=== PATIENT | male | born 1955 | race Caucasian/White ===

== ENCOUNTER 2018-07-20 13:58 | Inpatient (IN) | payer OTHER ==
[~2018-07-20] VITALS: Ht 172.7 cm; Wt 71.9 kg
--- NOTE | 2018-07-20 14:36 | NUR ---
dr werner at bedside for mse.
--- NOTE | 2018-07-20 14:38 | NUR ---
REC'D A 62/M IN RM 1T WITH C/O LEFT 2ND TOE PAIN X 1.5 WEEKS, POSSIBLY GANGRENE. PT DENIES TRAUMA. HX OF DM. PT AAOX4, CLEAR SPEECH, RESP E/U, BLACK/DISCOLORATION NOTED TO LEFT 2ND TOE, WITH ERYTHEMA TO LEFT FOOT. PT IN NO ACUTE DISTRESS. AT BEDSIDE.
--- NOTE | 2018-07-20 14:52 | NUR ---
XRAY AT BEDSIDE.
[2018-07-20 15:27] LABS: BASOPHIL % 0.8 % (0-2); PLATELET COUNT 270 x10^3mcL (130-400); RED CELL DISTRIBUTION WIDTH 12.2 % (11.5-14.5)
[2018-07-20 15:31] LABS: CALCIUM 8.9 mg/dL (8.5-10.1); CARBON DIOXIDE 26.2 mmol/L (21-32); CREATININE SERUM 1.9 mg/dL (0.7-1.3); POTASSIUM SERUM 4.1 mmol/L (3.5-5.1)
--- NOTE | 2018-07-20 15:31 | NUR ---
PT INST TO PROVIDE URINE SAMPLE SOON POSSIBLE. URINAL PROVIDED
[2018-07-20 15:49] LABS: FREE T4 1.65 ng/dL (0.76-1.46)
[2018-07-20 15:50] LABS: T3 TOTAL 1.27 ng/mL
[2018-07-20 15:51] LABS: T4(THYROXINE) 16.7 ug/dL (4.7-13.3)
[2018-07-20 15:52] LABS: PHOSPHOROUS 3.6 mg/dL (2.5-4.9)
[2018-07-20 15:53] LABS: CHOLESTEROL/HDL RATIO 3.3
[2018-07-20 15:57] LABS: BILIRUBIN TOTAL 0.6 mg/dL (0.20-1.00); C REACTIVE PROTEIN 0.4 mg/dL (<=0.9); CK-MB 2.4 ng/mL (0-3.6)
[2018-07-20 15:59] LABS: TOTAL PROTEIN, SERUM 9.8 g/dL (6.4-8.2)
[2018-07-20 16:39] LABS: ERYTHROCYTE SED RATE 82 mm/hr (0-20)
--- NOTE | 2018-07-20 16:50 | NUR ---
REPORT GIVEN TO JONAS ANNE RESUMING CARE OF PT IN MED SURG FLOOR
--- NOTE | 2018-07-20 17:07 | NUR ---
PT TRANSFERRED TO MED SURG FLOOR VIA GURNEY BY MARSHALL DICKINSON. PT IN NO DISTRESS VSS JONAS RN RESUMING CARE OF PT
--- NOTE | 2018-07-20 17:20 | NUR ---
RECEIVED PT FROM ED VIA KACEY, CAME IN DUE TO LEFT FOOT PAIN X1 WEEK. AAOX4. STATED THAT HE HAD INGROWN NAIL AND DEVELOPED PAIN ON THE LEFT 2ND TOE. NO SOB NOTED. LUNG SOUNDS CTA. DENIES CHEST PAIN/PRESSURE. DENIES ABDOMINAL PAIN/NAUSEA/VOMITING. LAST BM TODAY, HAD DIARRHEAL EPISODES X2 DAYS. VOIDS. W/ BROWN DISCOLORATIONS ON BLE AND BLACK DISCOLORATION ON THE LEFT 2ND TOE. DENIES NUMBNESS/TINGLING SENSATION. IV SITE ON THE RIGHT HAND IS PATENT AND INTACT. RECEIVED PT FROM ED W/ VANCOMYCIN ONGOING. SIDE RAILS UXP2. CALL LIGHT ON REACH. ENDORSED TO PRIMARY NURSE JONAS FOR CONTINUITY OF CARE
[2018-07-20 17:27] VITALS: BP 181/102
[2018-07-20 17:37] VITALS: Ht 172.7 cm; Wt 71.9 kg
--- NOTE | 2018-07-20 18:11 | NUR ---
BP ELEVATED, 174/102, HR 60. DENIES SINGER. NO DIZZINESS. NO N/V. NO S/S OF ACUTE DISTRESS. DENIES CHEST PAIN. AA/OX4. FACE SYMMETRICAL. SPEECH CLEAR. PRN PO BP MEDICATION GIVEN PER ORDER. IV WNL TO RH, PATENT, FLUSHES WELL. SITE WNL, NO REDNESS, NO SWELLING, NO INFILTRATION. PT EATING DINNER. SIDE RAILS UP X2. BED IN LOW POSITION. CALL LIGHT WITHIN REACH. WILL ENDORSE TO ONCOMING SHIFT.
[2018-07-20 18:58] VITALS: BP 169/91
--- NOTE | 2018-07-20 20:00 | NUR ---
RECEIVED PT IN BED, RESTING QUIETLY. A/O X4, ABLE TO VERBALIZE NEEDS. RESP. EVEN AND UNLABORED. LUNGS SOUNDS CLEAR BILAT. ON ROOM AIR, NO ACUTE DISTRESS NOTED. AFEBRILE AND VITAL SIGNS STABLE. B/P READING SHOWS 139/79. AT THIS TIME. NO TELE, PT DENIES CP OR ANY DISCOMFORT. IVF, NS AT 100ML/HR, INTACT AND INFUSING VIA RH, SITE CLEAR. LT 2ND TOE DISCOLORED /GANGRENOUS. ABLE TO MOVE ALL EXTS. VOIDING FREELY. CALL LIGHT WITHIN REACH. WILL CONTINUE TO MONITOR.
[2018-07-20 20:56] VITALS: BP 130/81
--- NOTE | 2018-07-21 01:11 | NUR ---
EYES CLOSED, APPEARS ASLEEP, EASILY AROUSABLE. NO ACUTE DISTRESS NOTED.WILL CONTINUE TO MONITOR.
[2018-07-21 05:04] VITALS: BP 147/85
--- NOTE | 2018-07-21 06:16 | NUR ---
NPO EXCEPT MEDS MAINTAINED. IVF INTACT AND INFUSING WELL, SITE CLEAR. RESP. EVEN AND UNLABORED. NO ACUTE DISTRESS NOTED. AFEBRILE AND VITAL SIGNS STABLE. DUE MEDS GIVEN ORDERED. ELVIRA. WELL. NO COMPLAINTS NOTED AT THIS TIME. WILL CONTINUE TO MONITOR.
[2018-07-21 07:16] LABS: CALCIUM 8.5 mg/dL (8.5-10.1); CARBON DIOXIDE 22.6 mmol/L (21-32); CREATININE SERUM 1.8 mg/dL (0.7-1.3); POTASSIUM SERUM 4.6 mmol/L (3.5-5.1)
[2018-07-21 07:52] VITALS: BP 166/94
[2018-07-21 08:33] LABS: BASOPHIL % 0.7 % (0-2); PLATELET COUNT 231 x10^3mcL (130-400); RED CELL DISTRIBUTION WIDTH 12.4 % (11.5-14.5)
--- NOTE | 2018-07-21 15:20 | NUR ---
[facility] CALLED [facility] REQUESTING LATE LUNCH TRAY. PROVIDED PATIENT WITH SNACK AND WATER. NO OTHER NEEDS AT THIS TIME. TELEPHONE OPERATOR CHIEF, DR. JOHNSON AT BEDSIDE EVALUATING PATIENT. PATIENT TO HAVE SURGICAL PROCEDURE TO REMOVE 2ND LEFT DIGIT 07/24/18.
--- NOTE | 2018-07-21 16:58 | NUR ---
PATIENT SITTING UP IN BED, NO NEEDS AT THIS TIME.
[2018-07-21 17:49] VITALS: BP 117/75; BP 139/91
--- NOTE | 2018-07-21 19:43 | NUR ---
REPORT GIVEN TO OMID RAYMUNDO AND OMID LEON. PATIENT SITTING UP IN BED, NO DISTRESS NOTED. NS 100 ML/HR TO RIGHT HAND. BED LOW, CALL LIGHT WITHIN REACH. CARE ENDORSED.
--- NOTE | 2018-07-21 20:00 | NUR ---
RECIEVED PT RESTING IN BED. A/O X4. PT ABLE TO VERBALIZE NEEDS. RR EVEN AND UNLABORED. PT DENIES SOB. PT NOT ON TELE, DENIES CP OR ANY DIS COMFORT AT THIS TIME. IVF NS 100ML/HR AT RIGHT FA, SITE CLEAR. ABD SOFT AND NON-DISTENDED BS ACTIVE X4, NO N/V NOTED. LLE SECOND TOE BLACKENED. PULSES PALABLE BLE. PT ABLE TO MOVE ALL EXTREMITIES. DENIES PAIN OR DISCOMFORT. VOIDING FREELY. ASSISTED WITH HS CARE. CALL LIGHT WITHIN REACH. WILL CONTINUE TO MONITOR.
[2018-07-21 21:33] VITALS: BP 149/96
--- NOTE | 2018-07-22 01:08 | NUR ---
PT EYES CLOSED, APPEARS TO BE SLEEPING. EASILY AROUSABLE. NO ACUTE DISTRESS. IVF INFUSING WELL. CALL LIGHT WITHIN REACH. WILL CONTINUE TO MONITOR.
--- NOTE | 2018-07-22 05:10 | NUR ---
SLEPT WELL DURING THE NIGHT. NO SIGNIFICANT CHANGE NOTED IN PT,S CONDITION.RESP. EVEN AND UNLABORED. DENIES SOB. NO ACUTE DISTRESS NOTED. AFEBRILE AND VITAL SIGNS STABLE. DENIES ANY DISCOMFORT. IVF INTACT AND INFUSING WELL, SITE CLEAR. VOIDING FREELY. KEPT COMFORTABLE. ALL NEEDS ATTENDED TO. WILL CONTINUE TO MONITOR.
[2018-07-22 06:45] VITALS: BP 154/99
[2018-07-22 06:56] LABS: CALCIUM 8.5 mg/dL (8.5-10.1); CARBON DIOXIDE 23.4 mmol/L (21-32); CREATININE SERUM 1.8 mg/dL (0.7-1.3); POTASSIUM SERUM 4.1 mmol/L (3.5-5.1)
[2018-07-22 07:09] LABS: PLATELET COUNT 223 x10^3mcL (130-400); RED CELL DISTRIBUTION WIDTH 12.6 % (11.5-14.5)
--- NOTE | 2018-07-22 07:29 | NUR ---
RECEIVED PT FROM SHIFT NURSE SITTING ON EDGE OF BED A/OX4. NO ACUTE DISTRESS NOTED. IV INTACT AND PATENT. BED IN LOW POSITION. CALL LIGHT WITHIN REACH. WILL CONTINUE TO MONITOR.
[2018-07-22 09:45] VITALS: BP 158/97
--- NOTE | 2018-07-22 10:05 | NUR ---
PT RESTING IN BED AND NO ACUTE DISTRESS NOTED. DENIES ANY PAIN OR DISCOMFORT. IV INTACT AND INFUSING WELL. CALL LIGHT WITHIN REACH. WILL CONTINUE TO MONITOR.
[2018-07-22 13:20] LABS: AMPHETAMINE QUAL UR NONE DETECTED (See below)
--- NOTE | 2018-07-22 13:48 | NUR ---
PT BP 178/107. MADE MENTAL HEALTH CONSULTANT [place] AWARE. GAVE METOPROLOL ORDERED. WILL CONTINUE TO MONITOR.
[2018-07-22 15:55] VITALS: BP 167/101
--- NOTE | 2018-07-22 16:16 | NUR ---
PT BP STILL ELEVATED 167/101. MADE GLAZE GRINDER [place] AWARE. GAVE HYDRALAZINE ORDERED. WILL CONTINUE TO MONITOR.
[2018-07-22 18:00] VITALS: BP 175/92
--- NOTE | 2018-07-22 18:15 | NUR ---
PT BP 175/92. MADE CAFETERIA CASHIER [place] AWARE. PER [place] WILLS TO GIVE HYDRALAZINE PRN. WILL CONTINUE TO MONITOR.
--- NOTE | 2018-07-22 18:52 | NUR ---
PT SITTING ON EDGE OF BED EATING DINNER. NO ACUTE DISTRESS NOTED. FAMILY MEMBER AT BEDSIDE. IV INTACT AND PATENT. BED IN LOW POSITION. CALL LIGHT WITHIN REACH. WILL BE ENDORSED.
--- NOTE | 2018-07-22 19:49 | NUR ---
PT. AWAKE, ALERT, SITTING UP AT BEDSIDE EATING HIS DINNER. FAMILY AT BEDSIDE. BREATH SOUNDS CLEAR THROUGHOUT LUNG REGAN, RESP. EVEN, UNLABORED. NO SOB. PT. ON RA. DENIES CHESTPAIN OR DISCOMFORT. PEDAL PULSES MODERATE TO BLE. LLE SECOND TOE DICOLORED, BLACK IN APPEARANCE. DENIES ANY PAIN. NO DRAINAGE NOTED. PT. STILL ABLE TO FEEL SENSATION ON SOLE OF BLE. ABD. SOFT AND ROUND, BOWEL SOUNDS ACTIVE. IV SITE INTACT. CALL LIGHT WITHIN REACH.
[2018-07-22 21:30] VITALS: BP 169/103
--- NOTE | 2018-07-23 00:37 | NUR ---
PT. APPEARS TO BE SLEEPING AT THIS TIME. EYES CLOSED AND SNORING. NO C/O PAIN THUS FAR. NO DRAINAGE FROM LLE 2ND TOE. WILL CONTINUE TO MONITOR. CALL LIGHT WITHIN REACH.
[2018-07-23 03:39] VITALS: BP 143/88
--- NOTE | 2018-07-23 06:28 | NUR ---
PT. SLEPT WELL THROUGHOUT NIGHT. NO C/O PAIN. DRSG. TO LLE 2ND TOE INTACT. IVF INFUSING WELL, SITE INTACT. CALL LIGHT WTIHIN REACH. WILL ENDORSE PT. CARE TO INCOMING NURSE.
--- NOTE | 2018-07-23 07:10 | NUR ---
RECEIVED PT FROM SHIFT NURSE A/OX4 SITTING UP IN BED. NO ACUTE DISTRESS NOTED. IV INTACT AND PATENT. BED IN LOW POSITION. CALL LIGHT WITHIN REACH. WILL CONTINUE TO MONITOR.
[2018-07-23 07:41] LABS: CALCIUM 8.7 mg/dL (8.5-10.1); CARBON DIOXIDE 22.7 mmol/L (21-32); CREATININE SERUM 1.7 mg/dL (0.7-1.3); POTASSIUM SERUM 4.1 mmol/L (3.5-5.1)
[2018-07-23 08:18] LABS: BASOPHIL % 0.8 % (0-2); PLATELET COUNT 245 x10^3mcL (130-400); RED CELL DISTRIBUTION WIDTH 12.6 % (11.5-14.5)
[2018-07-23 08:58] VITALS: BP 161/105
--- NOTE | 2018-07-23 08:58 | NUR ---
PT BP 161/105. GAVE APRESOLINE ORDERED. WILL CONTINUE TO MONITOR.
--- NOTE | 2018-07-23 10:17 | NUR ---
PT SITTING IN BED TALKING WITH FAMILY MEMBER ON PHONE. NO ACUTE DISTRESS NOTED. BED IN LOW POSITION. CALL LIGHT WITHIN REACH. WILL CONTINUE TO MONITOR.
[2018-07-23 11:45] VITALS: BP 156/101
--- NOTE | 2018-07-23 12:00 | NUR ---
PT BP 156/101 AND MADE PRODUCTION MACHINE TENDER [place] AWARE. WILL GIVE ZESTRIL ORDERED. WILL CONTINUE TO MONITOR.
--- NOTE | 2018-07-23 15:03 | NUR ---
INFORMED [facility] 12.1.
--- NOTE | 2018-07-23 15:30 | NUR ---
PER PHARMACIST OK TO GIVE SCHEDULED VANCOMYCIN.
--- NOTE | 2018-07-23 19:43 | NUR ---
PT. AWAKE, ALERT, SITTING UP IN BED. FAMILY AT BEDSIDE. ORIENTED X4. DENIES HEADACHE OR DIZZINESS. BEATH SOUNDS CLEAR THROUGHOUT LUNG REGAN, RESP. EVEN, UNLABORED. NO SOB NOTED. ON RA. DENIES CHESTPAIN OR DISCOMFORT. PEDAL PULSES MODERATE TO BLE. LLE SECOND TOE DISCOLORED, BLACK. NO DRAINAGE NOTED. DRSG CDI. ABD. SOFT AND ROUND, BOWEL SOUNDS ACTIVE. IVF INFUSING WELL, SITE INTACT. CALL LIGHT WITHIN REACH.
[2018-07-23 20:49] VITALS: BP 176/105
--- NOTE | 2018-07-23 21:48 | NUR ---
PT. CARE BEING ENDORSED OVER TO HOLA ANNE. VASOTEC IVP WAS ORDERED. PT. IS BEING PLACED ON HEART MONITOR PER PROTOCOL.
--- NOTE | 2018-07-23 22:19 | NUR ---
PT.PLACED ON TELE NUMBER 2, NSR. NO C/O CHESTPAIN. BLOOD PRESSURE RECHECKED, 181/110. PT. CARE ENDORSED TO HOLA WHO WILL ADMINISTER PRN DOSE OF VASOTEC IVP. DR. PARRISH AWARE THAT PT.'S BEING PLACED ON TELE MONITOR. PT. MADE AWARE OF CHANGE OF NURSE AND REASON WHY. PT. VERBALIZED UNDERSTANDING OF SWITCH.
--- NOTE | 2018-07-23 22:45 | NUR ---
ZX=722/110, ENALALAPRILAT 0.625MG IVP PRN MEDICATION. DENIES ANY HEADACHE/CHESTPAIN AT THIS TIME. WILL CONTINUE TO MONITOR.
[2018-07-24] VITALS (9 sets, daily range): BP systolic 122–185; BP diastolic 82–109
--- NOTE | 2018-07-24 07:15 | NUR ---
SEEN IN BED AAOX4. NO SOB OR RESP DISTRESS NOTED. DENIES PAIN. KEPT NPO FOR PROCEDURE TODAY IN AFTERNOON. PATIENT MADE AWARE PLAN OF CARE. IVF NS TO RFA INFUSING WELL. NOTED LT 2ND TOE BLACK IN COLOR, DRY, COVERRED WITH DRY GAUZE. SCD TO BLE INPLACED. CALL LIGHT PLACED WITHIN EASY REACH. SIDERAILS UP X2.
[2018-07-24 08:43] LABS: BASOPHIL % 1.2 % (0-2); PLATELET COUNT 240 x10^3mcL (130-400); RED CELL DISTRIBUTION WIDTH 12.7 % (11.5-14.5)
[2018-07-24 08:48] LABS: CALCIUM 8.4 mg/dL (8.5-10.1); CARBON DIOXIDE 22.5 mmol/L (21-32); CREATININE SERUM 1.7 mg/dL (0.7-1.3); MAGNESIUM 1.9 mg/dL (1.8-2.4); POTASSIUM SERUM 4.2 mmol/L (3.5-5.1)
--- NOTE | 2018-07-24 09:06 | NUR ---
AM SCHEDULED MEDS GIVEN. IVPB ZOSYN INFUSING WELL TO RT HAND IV SITE. SALO WIPE PROVIDED.
--- NOTE | 2018-07-24 13:50 | NUR ---
AT 12:45PM BROUGHT VIA BED TO OR. NO ANY DISTRESS NOTED.
--- NOTE | 2018-07-24 14:55 | NUR ---
RECEIVED BACK FROM OR S/P PARTIAL LEFT SECOND RAY AMPUTATION. AAOX4. NOTED DRSG TO LEFT FOOT DRY AND INTACT, ABLE TO WIGGLE TOES, DENIES PAIN AT THIS TIME. KEPT LLE ELEVATED ON PILLOW. POST OP SHOES AT BEDSIDE. V/S CHECKED STABLE, O2SAT 95% ON ROOM AIR, BP 160/98, RR 18, HR 78, AFEBRILE. IVF NS RECONNECTED AND INFUSING AT 100ML/HR. CALL LIGHT PLACED WITHIN EASY REACH. SIDERAILS UP X2. PATIENT'S BROTHER AT BEDSIDE.
--- NOTE | 2018-07-24 17:30 | NUR ---
PATIENT HAD A SHORT V-TACH, SEEN PATIENT SITTING UP IN BED TALKING TO HIS BROTHER, DENIES CHEST PAIN, BP 166/103, HR 79, RR 18, O2SAT 94% AMBAR NOTIFIED, STAT EGK AND NEW ORDER FOR METOPROLOL 25MG PO X1 WILL BE DONE.
--- NOTE | 2018-07-24 18:59 | NUR ---
RECHECKED BP AFTER METOPROLOL 25MG PO GIVEN, BP 165/96, HR 77. DENIES CHEST PAIN OR CHEST PRESSURE. WILL ENDROSE TO INCOMING SHIFT.
--- NOTE | 2018-07-24 20:28 | NUR ---
PT CURRENTLY RESTING IN BED, NO ACUTE DISTRESS. A/O X4. TELE #2 SHOWING SINUS RHYTHM, DENIES CHEST PAIN. PULSES PALPABLE IN ALL EXTREMITIES, NO EDEMA NOTED. LUNG SOUNDS CTA BILATERALLY, DENIES SOB. BOWEL SOUNDS ACTIVE, LAST BM 07/24/18. VOIDING WELL. AMBULATORY. S/P LEFT 2ND TOE AMPUTATION, DRESSING CDI. DENIES PAIN AT THIS TIME. IV PATENT AND INTACT. BED IN LOWEST POSITION, SIDE RAILS UP X2, CALL LIGHT WITHIN REACH. WILL CONTINUE TO MONITOR.
--- NOTE | 2018-07-25 02:13 | NUR ---
PT CURRENTLY RESTING IN BED, NO ACUTE DISTRESS. WILL CONTINUE TO MONITOR.
[2018-07-25 05:21] VITALS: BP 154/82
[2018-07-25 06:20] LABS: BASOPHIL % 0.4 % (0-2); PLATELET COUNT 243 x10^3mcL (130-400); RED CELL DISTRIBUTION WIDTH 12.8 % (11.5-14.5)
--- NOTE | 2018-07-25 06:33 | NUR ---
PT SLEPT PERIODICALLY THROUGHOUT NIGHT, NO ACUTE DISTRESS. ALL NEEDS MET AND ATTENDED TO. NO SIGNIFICANT CHANGES. IV PATENT AND INTACT. BED IN LOWEST POSITION, SIDE RAILS UP X2, CALL LIGHT WITHIN REACH. WILL ENDORSE CARE TO ONCOMING NURSE.
[2018-07-25 06:40] LABS: CALCIUM 8.6 mg/dL (8.5-10.1); CARBON DIOXIDE 25.7 mmol/L (21-32); CREATININE SERUM 1.9 mg/dL (0.7-1.3); POTASSIUM SERUM 4.9 mmol/L (3.5-5.1)
--- NOTE | 2018-07-25 07:05 | NUR ---
SEEN IN BED AAOX4. NO SOB OR RESP DISTRESS NOTED ON ROOM AIR. TELE#2 NSR. DRSG TO LT FOOT DRY/INTACT, CONTINUED ELEVATED ON PILLOW, STATED HAD NO PAIN, DENIES NUMBNESS TO LLE, ABLE TO MOVE AND WIGGLE LEFT TOES, SKIN WARM, CAP REFIL<3SEC. POST-OP SHOES AT BEDSIDE, PATIENT MADE TO WEAR THEM TO AMBULATE. IVF NS TO RT HAND INFUSING WELL. PLAN OF CARE INFORMED, CALL LIGHT PLACED WITHIN EASY REACH. SIDERAILS UP X2.
[2018-07-25 08:10] VITALS: BP 168/99
--- NOTE | 2018-07-25 10:06 | NUR ---
BP 168/99, HR 68. DENIES CHEST PAIN. ASCHEDULED AM MEDS LISINOPRIL 10MG AND HYDRALAZINE 10MG PO GIVEN. WILL BE MONITORED.
--- NOTE | 2018-07-25 12:00 | NUR ---
BP 139/100, HR 67. DENIES HEADACHE OR DIZZINESS.
[2018-07-25 12:21] VITALS: BP 139/100
--- NOTE | 2018-07-25 16:00 | NUR ---
BP 188/102, HR 63, HYDRALAZINE 10MG PO GIVEN.
[2018-07-25 16:11] VITALS: BP 188/102
--- NOTE | 2018-07-25 18:30 | NUR ---
REPEATED BP 178/95, HR 67. DENIES HEADACHE OR DIZZINESS. DENIES PAIN.
[2018-07-25 18:32] VITALS: BP 178/95
--- NOTE | 2018-07-25 18:46 | NUR ---
DRSG REMOVED AND NEW DRSG APPLIED BY DOCTOR DAY(PODIATRY) AT BEDSIDE. DENIES PAIN. KEPT LLE ELEVATED ON PILLOW.
--- NOTE | 2018-07-25 18:51 | NUR ---
ABLE TO AMBULATE TO BATHROOM WITH FULL HEEL WEIGH BEARING IN POST OP SHOE ON LEFT FOOT, REFUSED PAIN MEDS OFFERRED. PT EVAL DONE. ALL SCHEDULED MEDS GIVEN. IV SITE TO RFA INTACT AND PATENT.
--- NOTE | 2018-07-25 19:45 | NUR ---
PT CURRENTLY RESTING IN BED, NO ACUTE DISTRESS. A/O X4. TELE #2 SHOWING SINUS RHYTHM, DENIES CHEST PAIN. PULSES PALPABLE IN ALL EXTREMITIES, NO EDEMA NOTED. LUNG SOUNDS CTA BILATERALLY, DENIES SOB. BOWEL SOUNDS ACTIVE, LAST BM 07/24/18. VOIDING WELL. AMBULATORY. S/P LEFT 2ND TOE AMPUTATION, DRESSING CDI. IV PATENT AND INTACT. BED IN LOWEST POSITION, SIDE RAILS UP X2, CALL LIGHT WITHIN REACH. WILL CONTINUE TO MONITOR.
[2018-07-25 21:13] VITALS: BP 156/87
--- NOTE | 2018-07-26 01:20 | NUR ---
PT CURRENTLY RESTING IN BED, NO ACUTE DISTRESS. WILL CONTINUE TO MONITOR.
[2018-07-26 06:07] VITALS: BP 144/98
[2018-07-26 06:37] LABS: BASOPHIL % 0.9 % (0-2); PLATELET COUNT 255 x10^3mcL (130-400); RED CELL DISTRIBUTION WIDTH 12.5 % (11.5-14.5)
[2018-07-26 06:42] LABS: CALCIUM 9.1 mg/dL (8.5-10.1); CARBON DIOXIDE 26.4 mmol/L (21-32); CREATININE SERUM 1.9 mg/dL (0.7-1.3); POTASSIUM SERUM 4.8 mmol/L (3.5-5.1)
--- NOTE | 2018-07-26 07:40 | NUR ---
RC'D PT RESTING IN BED WITH NO APPARENT SIGNS OF DISTRESS. A/A/AO/X4, SPEECH CLEAR AND APPROPRIATE. DENIES SINGER/DIZZINESS. ON TELE, DENIES CHEST PAIN/PRESSURE. PALP PULSES. RESPIRATIONS EQUAL AND UNLABORED. LUNGS CTA. ON RA, DENIES SOB. ABDOMEN SOFT AND NONTENDER. ACTIVE BS. DENIES N/V. VOIDS FREELY. GENERALIZED WEAKNESS TO LLE. LLE DRESSING IN PLACE, CDI. DENIES PAIN AT THIS TIME. IV PATENT AND INTACT. BED IN LOW POSITION. CALL LIGHT IN REACH. WILL CONTINUE TO MONITOPTR
[2018-07-26 08:48] VITALS: BP 186/104
--- NOTE | 2018-07-26 08:50 | NUR ---
AM MEDICATIONS GIVEN. PT TOLERATED WELL. RESPIRATIONS EQUAL AND UNLABORED. ON RA, DENIES SOB. PT DENIES EXCESSIVE PAIN AT THIS TIME. BED IN LOW POSITION. CALL LIGHT IN REACH. WILL CONTINUE TO MONITOR
[2018-07-26] MEDS ORDERED: NOR5 PO (10:19)
[2018-07-26] MEDS ORDERED: ZESTRIL20 MG PO (10:20)
[2018-07-26] MEDS ORDERED: IBUPROFEN400 MG PO (10:20)
--- NOTE | 2018-07-26 11:14 | NUR ---
PT RESTING IN BED WITH NO APPARENT SIGNS OF DISTRESS. RESPIRATIONS EQUAL AND UNLABORED. ON RA, DENIES SOB. PT DENIES EXCESSIVE PAIN AT THIS TINM. BE DIN LOW POSITION. CALL LIGHT IN REACH. [facility]
--- NOTE | 2018-07-26 12:14 | NUR ---
BP 168/97 HR 62, MEDICATED WITH HYDRALAZINE PO PER EMAR. WILL CONT TO MONITOR
[2018-07-26 13:49] VITALS: BP 169/103
--- NOTE | 2018-07-26 14:49 | NUR ---
BP 192/104 (165), HR 62. PT ASMPTOMATIC AT THIS TIME. NOTIFIED PAID SEARCH MANAGER [place], AWAITING NEW ORDERS AT THIS TIME.
--- NOTE | 2018-07-26 15:28 | NUR ---
HYDRALAZINE IVP GIVEN AT THIS TIME. PT BP RECHECKED, 142/85 (111), HR 65. PT ASYMPOTAMATIC AT THIS TIME. BED IN LOW POSITION. CALL LIGHT IN REACH WILL CONTINUE TO MONITOR
[2018-07-26] MEDS ORDERED: COZ25 PO (16:39)
[2018-07-26] MEDS ORDERED: NOR10 PO (16:39)
[2018-07-26 16:56] VITALS: BP 129/77
--- NOTE | 2018-07-26 17:28 | NUR ---
PT PROVIDED WITH DC HOME INSTRUCTIONS. PT GIVEN MEDICATION EDUCATION. PT INFORMED TO TAKE MEDICATIONS ORDERED BY MD. PT INFORMED OF FOLLOW UP APPT WITH PCP. PT INFORMED TO KEEP LLE DRESSING CLEAN AND DRY. PT INFORMED TO FOLLOW UP [facility] SCHEDULED. PT INFORMED THAT IF WORSENING SIGNS AND SYMPTOMS WERE TO OCCUR TO RETURN TO HOSPITAL OR REPORT TO PCP. PT VERBALIZED UNDERSTANDING OF INSTRUCTIONS. TELE AND IV DC'D, CATHETER INTACT. NO REDNESS OR INFLAMMATION NOTED. PT WITH ALL BELONGINGS PRESENT AND NO APPARENT SIGNS OF DISTRESS AWAITING FOR RIDE TO BE TAKEN DOWN TO LOBBY WITH AUTOMOBILE DAMAGE FIELD APPRAISER PRESENT
--- NOTE | 2018-07-26 18:39 | NUR ---
PT TAKEN DOWN TO LOBBY WITH NO APPARENT SIGNS OF DISTRESS WITH ALL PERSONAL BELONGINGS IN HAND WITH FAMILY AND LIVESTOCK EXHIBITOR PTRESENT
== END 2018-07-26 18:40 | disposition home or self-care (01) | DRG 305 ==
LOC: ED 13:58 → DU 14:54 → MU 14:54 → DU 07-24 04:21
PROVIDERS: General Practice; Podiatrist Foot & Ankle Surgery; Specialist; ADMIT Internal Medicine
PROC: 0Y6N0ZB Detachment at Left Foot, Partial 2nd Ray, Open Approach (ICD-10-PCS; 2018-07-24)
PROC: 0Y6S0Z0 Detachment at Left 2nd Toe, Complete, Open Approach (ICD-10-PCS; principal; 2018-07-24 13:30)
DX: E11.52 Type 2 diabetes mellitus with diabetic peripheral angiopathy with gangrene (principal); N17.0 Acute kidney failure with tubular necrosis; I96 Gangrene, not elsewhere classified; E87.8 Other disorders of electrolyte and fluid balance, not elsewhere classified; E11.40 Type 2 diabetes mellitus with diabetic neuropathy, unspecified; E44.0 Moderate protein-calorie malnutrition; L03.116 Cellulitis of left lower limb; E11.65 Type 2 diabetes mellitus with hyperglycemia; I10 Essential (primary) hypertension; M20.12 Hallux valgus (acquired), left foot; M20.11 Hallux valgus (acquired), right foot; E87.1 Hypo-osmolality and hyponatremia; I16.0 Hypertensive urgency; R74.0 Nonspecific elevation of levels of transaminase and lactic acid dehydrogenase [LDH]; Z68.23 Body mass index [BMI] 23.0-23.9, adult; Z79.84 Long term (current) use of oral hypoglycemic drugs
CPT/HCPCS: 82962; 84439; 94150; J0360; J2250; J2543; J3010; J3370; J3490; J7030; Q0092

== ENCOUNTER 2018-07-30 20:15 | Inpatient (IN) | payer OTHER ==
[~2018-07-30] VITALS: Ht 172.7 cm; Wt 73.1 kg
[~2018-07-30 20:15] MED LIST: COZ25 PO; IBUPROFEN400 MG PO; NOR10 PO; NOR5 PO; ZESTRIL20 MG PO
[2018-07-30 21:42] LABS: BASOPHIL % 1.3 % (0-2); PLATELET COUNT 249 x10^3mcL (130-400); RED CELL DISTRIBUTION WIDTH 12.9 % (11.5-14.5)
[2018-07-30 21:55] LABS: CALCIUM 8.4 mg/dL (8.5-10.1); CARBON DIOXIDE 21.9 mmol/L (21-32); CREATININE SERUM 2.1 mg/dL (0.7-1.3)
[2018-07-30 22:00] LABS: BILIRUBIN TOTAL 0.25 mg/dL (0.20-1.00)
[2018-07-30 22:01] LABS: ALBUMIN 2.9 g/dL (3.4-5.0); TOTAL PROTEIN, SERUM 8.3 g/dL (6.4-8.2)
[2018-07-30 23:22] LABS: UA SPECIFIC GRAVITY 1.015 (1.005-1.035); microscopic required? YES; urine erythrocyte TRACE (NEGATIVE)
[2018-07-31] MEDS ORDERED: ATORVASTATIN CA40 M1 PO (00:33)
[2018-07-31] MEDS ORDERED: GLUCOTROL5 MG PO (00:33)
[2018-07-31] MEDS ORDERED: NOR10 PO (00:34)
[2018-07-31] MEDS ORDERED: ELIQUIS5 MG PO (00:34)
[2018-07-31 01:06] VITALS: BP 153/98
[2018-07-31 01:57] LABS: MAGNESIUM 2.1 mg/dL (1.8-2.4); PHOSPHOROUS 3.8 mg/dL (2.5-4.9)
[2018-07-31 01:58] LABS: CHOLESTEROL/HDL RATIO 3.4
[2018-07-31 02:06] LABS: T3 TOTAL 1.73 ng/mL
[2018-07-31 02:08] LABS: FREE T4 1.57 ng/dL (0.76-1.46); FREE THYROXINE INDEX 4.1 ug/dL (1.4-4.5); T4(THYROXINE) 14.3 ug/dL (4.7-13.3)
[2018-07-31 07:10] LABS: BASOPHIL % 1.2 % (0-2); PLATELET COUNT 243 x10^3mcL (130-400); RED CELL DISTRIBUTION WIDTH 12.7 % (11.5-14.5)
[2018-07-31 07:21] LABS: CALCIUM 8.5 mg/dL (8.5-10.1); CARBON DIOXIDE 20.6 mmol/L (21-32); CREATININE SERUM 1.8 mg/dL (0.7-1.3); POTASSIUM SERUM 4.5 mmol/L (3.5-5.1)
[2018-07-31 09:55] VITALS: BP 148/89
[2018-07-31 17:48] VITALS: BP 146/95
[2018-07-31 20:56] VITALS: BP 167/100
[2018-07-31 22:50] VITALS: BP 158/94
[2018-08-01 05:33] VITALS: BP 165/95
[2018-08-01 08:02] LABS: BASOPHIL % 1.3 % (0-2); PLATELET COUNT 223 x10^3mcL (130-400); RED CELL DISTRIBUTION WIDTH 12.4 % (11.5-14.5)
[2018-08-01 08:06] LABS: CALCIUM 8.4 mg/dL (8.5-10.1); CARBON DIOXIDE 21.2 mmol/L (21-32); CREATININE SERUM 1.3 mg/dL (0.7-1.3); POTASSIUM SERUM 4.5 mmol/L (3.5-5.1)
[2018-08-01 09:44] VITALS: BP 141/93
[2018-08-01 12:55] VITALS: BP 140/96
[2018-08-01 16:26] VITALS: BP 148/93; BP 148/97
[2018-08-01 17:46] VITALS: BP 148/93
== END 2018-08-01 19:28 | disposition home or self-care (01) | DRG 48 ==
LOC: ED 20:15 → DU 07-31 00:07
PROVIDERS: Emergency Medicine; Internal Medicine; ADMIT Family Medicine
DX: G90.8 Other disorders of autonomic nervous system (principal); N17.0 Acute kidney failure with tubular necrosis; E87.1 Hypo-osmolality and hyponatremia; E11.9 Type 2 diabetes mellitus without complications; E78.5 Hyperlipidemia, unspecified; I10 Essential (primary) hypertension; Z86.73 Personal history of transient ischemic attack (TIA), and cerebral infarction without residual deficits; Z89.422 Acquired absence of other left toe(s); I25.2 Old myocardial infarction; E44.0 Moderate protein-calorie malnutrition; E83.51 Hypocalcemia; E86.0 Dehydration; I95.1 Orthostatic hypotension
CPT/HCPCS: 82962; 84439; J7030; Q0092

== ENCOUNTER 2018-08-20 21:34 | Emergency (ER) | payer OTHER ==
[~2018-08-20] VITALS: Ht 170.2 cm; Wt 75.3 kg
[~2018-08-20 21:34] MED LIST changes: +ATORVASTATIN CA40 M1 PO; +ELIQUIS5 MG PO; +GLUCOTROL5 MG PO
[2018-08-20 21:45] VITALS: Ht 170.2 cm; Wt 75.3 kg
[2018-08-20 23:05] LABS: BASOPHIL % 0.8 % (0-2); PLATELET COUNT 165 x10^3mcL (130-400); RED CELL DISTRIBUTION WIDTH 12.7 % (11.5-14.5)
[2018-08-20 23:09] LABS: CALCIUM 9.1 mg/dL (8.5-10.1); CARBON DIOXIDE 22.5 mmol/L (21-32); CREATININE SERUM 1.6 mg/dL (0.7-1.3); POTASSIUM SERUM 4.6 mmol/L (3.5-5.1)
[2018-08-20 23:13] LABS: BILIRUBIN TOTAL 0.3 mg/dL (0.20-1.00)
[2018-08-20 23:21] LABS: ALBUMIN 3.3 g/dL (3.4-5.0); TOTAL PROTEIN, SERUM 8.5 g/dL (6.4-8.2)
[2018-08-21 01:09] VITALS: BP 133/87
== END 2018-08-21 01:09 | disposition home or self-care (01) ==
LOC: ED 21:34
PROVIDERS: Emergency Medicine
DX: R19.7 Diarrhea, unspecified (principal); I12.9 Hypertensive chronic kidney disease with stage 1 through stage 4 chronic kidney disease, or unspecified chronic kidney disease; E11.22 Type 2 diabetes mellitus with diabetic chronic kidney disease; N18.9 Chronic kidney disease, unspecified; E78.5 Hyperlipidemia, unspecified; Z86.73 Personal history of transient ischemic attack (TIA), and cerebral infarction without residual deficits; Z89.422 Acquired absence of other left toe(s)
CPT/HCPCS: 36415; 87046; 87046-59

== ENCOUNTER 2019-11-02 16:42 | Emergency (ER) | payer OTHER ==
[~2019-11-02] VITALS: Ht 170.2 cm; Wt 77.1 kg
[2019-11-02 17:16] VITALS: Ht 170.2 cm; Wt 77.1 kg
[2019-11-02 23:38] VITALS: BP 162/110
== END 2019-11-02 23:38 | disposition home or self-care (01) ==
LOC: ED 16:42
DX: M20.11 Hallux valgus (acquired), right foot (principal); I10 Essential (primary) hypertension; E11.9 Type 2 diabetes mellitus without complications
CPT/HCPCS: 82962; J0696